=== PATIENT | female | born 1955 | race Caucasian/White ===

== ENCOUNTER 2018-10-13 15:53 | Emergency (ER) | payer BC ==
--- NOTE | 2018-10-13 17:08 | ED ---
General Adult HPI - General Chief complaint: Shortness of Breath Stated complaint: panic attack Time Seen by Provider: 10/13/18 16:07 Source: patient, RN notes reviewed, old records reviewed Mode of arrival: ambulatory Limitations: no limitations - History of Present Illness Initial comments: 63-year-old female presenting with panic attack and dyspnea. Patient has known history of anxiety and has had previous panic attacks. She's been dealing with some increased anxiety over the past several days regarding making Thanksgiving dinner. She states that today she felt lightheaded after getting up in the morning, she did not feel as though she was able to make a meal today and she became quite anxious. She states her [id number] did help her through this panic attack. She does report dyspnea on increase work of breathing. Denies chest pain at the time my evaluation. She's had some intermittent chest pain over the past several years. She has been seen by resident manager, had outpatient stress testing. She has no known history of coronary artery disease. No history of DVT or PE. She is presenting today because she feels this may be related to her heart in addition to anxiety. - Related Data Home Medications Medication Instructions Recorded Confirmed Acetaminophen/Diphenhydramine 1 tab PO HS PRN 10/13/18 10/13/18 [Tylenol PM Extra Strength] Previous Rx's Medication Instructions Recorded ALPRAZolam [Xanax] 0.5 mg PO TID PRN #9 tablet 10/13/18 Allergies Allergy/AdvReac Type Severity Reaction Status Date / Time No Known Allergies Allergy Verified 10/13/18 16:59 Review of Systems ROS Statement: Those systems with pertinent positive or pertinent negative responses have been documented in the HPI. ROS Other: All systems not noted in ROS Statement are negative. Past Medical History Past Medical History: No Reported History History of Any Multi-Drug Resistant Organisms: None Reported Past Surgical History: No Surgical Hx Reported Past Psychological History: Anxiety, Panic Disorder Smoking Status: Current every day smoker Past Alcohol Use History: None Reported Past Drug Use History: Marijuana General Exam Limitations: no limitations General appearance: alert, in no apparent distress, anxious Head exam: Present: atraumatic, normocephalic Eye exam: Present: normal appearance, PERRL ENT exam: Present: normal exam Neck exam: Present: normal inspection. Absent: tenderness, meningismus Respiratory exam: Present: normal lung sounds bilaterally. Absent: respiratory distress, wheezes, rales Cardiovascular Exam: Present: regular rate, normal rhythm GI/Abdominal exam: Present: soft. Absent: distended, tenderness, guarding Extremities exam: Present: normal inspection, full ROM Neurological exam: Present: alert, oriented X3, CN II-XII intact. Absent: motor sensory deficit Psychiatric exam: Present: normal affect, anxious Skin exam: Present: warm, dry, intact. Absent: cyanosis, diaphoretic Course Vital Signs 10/13/18 10/13/18 15:56 17:27 Temperature 97.5 F L Pulse Rate 93 91 Respiratory 24 18 Rate Blood Pressure 133/82 155/92 O2 Sat by Pulse 100 97 Oximetry EKG Findings - EKG Comments: EKG Findings:: EKG: Normal sinus rhythm, conduction delay with ROS R prime, LVH , rate of 88, ME interval 150, QRS duration 90, QTC 464, no ST segment elevation or depression, T waves are upright. Medical Decision Making - Medical Decision Making 62-year-old female presenting with anxiety, panic attack, and dyspnea. Workup in the emergency department reveals mild leukocytosis 12.4, hemoglobin 14.1 which is normal, normal CMP, negative troponin, negative BNP, negative d-dimer. Chest x-ray negative for focal pneumonia or pneumothorax. Patient is reassured. History is consistent with anxiety. She will be prescribed short course of Xanax. She will follow-up with her primary care physician and her resident manager. - Lab Data Result diagrams: 10/13/18 17:27 10/13/18 17:27 Lab Results 10/13/18 10/13/18 10/13/18 Range/Units 17:27 17:27 17:27 WBC 12.4 H (3.8-10.6) k/uL RBC 4.99 (3.80-5.40) m/uL Hgb 14.1 (11.4-16.0) gm/dL Hct 44.2 (34.0-46.0) % MCV 88.6 (80.0-100.0) fL MCH 28.2 (25.0-35.0) pg MCHC 31.9 (31.0-37.0) g/dL RDW 15.4 (11.5-15.5) % Plt Count 330 (150-450) k/uL Neutrophils % 71 % Lymphocytes % 20 % Monocytes % 6 % Eosinophils % 1 % Basophils % 0 % Neutrophils # 8.8 H (1.3-7.7) k/uL Lymphocytes # 2.5 (1.0-4.8) k/uL Monocytes # 0.7 (0-1.0) k/uL Eosinophils # 0.1 (0-0.7) k/uL Basophils # 0.1 (0-0.2) k/uL PT (9.0-12.0) sec INR (<1.2) APTT (22.0-30.0) sec D-Dimer (<0.60) mg/L FEU Sodium 138 (137-145) mmol/L Potassium 3.8 (3.5-5.1) mmol/L Chloride 103 (98-107) mmol/L Carbon Dioxide 22 (22-30) mmol/L Anion Gap 13 mmol/L BUN 19 H (7-17) mg/dL Creatinine 0.78 (0.52-1.04) mg/dL Est GFR (CKD-EPI)AfAm >90 (>60 ml/min/1.73 sqM) Est GFR (CKD-EPI)NonAf 83 (>60 ml/min/1.73 sqM) Glucose 124 H (74-99) mg/dL Calcium 9.9 (8.4-10.2) mg/dL Magnesium 1.7 (1.6-2.3) mg/dL Total Bilirubin 0.5 (0.2-1.3) mg/dL AST 32 (14-36) U/L ALT 20 (9-52) U/L Alkaline Phosphatase 101 (38-126) U/L Total Creatine Kinase 81 (30-135) U/L CK-MB (CK-2) 1.3 (0.0-2.4) ng/mL CK-MB (CK-2) Rel Index 1.6 Troponin I <0.012 (0.000-0.034) ng/mL NT-Pro-B Natriuret Pep pg/mL Total Protein 7.8 (6.3-8.2) g/dL Albumin 4.6 (3.5-5.0) g/dL 10/13/18 10/13/18 10/13/18 Range/Units 17:27 17:27 17:27 WBC (3.8-10.6) k/uL RBC (3.80-5.40) m/uL Hgb (11.4-16.0) gm/dL Hct (34.0-46.0) % MCV (80.0-100.0) fL MCH (25.0-35.0) pg MCHC (31.0-37.0) g/dL RDW (11.5-15.5) % Plt Count (150-450) k/uL Neutrophils % % Lymphocytes % % Monocytes % % Eosinophils % % Basophils % % Neutrophils # (1.3-7.7) k/uL Lymphocytes # (1.0-4.8) k/uL Monocytes # (0-1.0) k/uL Eosinophils # (0-0.7) k/uL Basophils # (0-0.2) k/uL PT 10.3 (9.0-12.0) sec INR 1.0 (<1.2) APTT 25.2 (22.0-30.0) sec D-Dimer 0.36 (<0.60) mg/L FEU Sodium (137-145) mmol/L Potassium (3.5-5.1) mmol/L Chloride (98-107) mmol/L Carbon Dioxide (22-30) mmol/L Anion Gap mmol/L BUN (7-17) mg/dL Creatinine (0.52-1.04) mg/dL Est GFR (CKD-EPI)AfAm (>60 ml/min/1.73 sqM) Est GFR (CKD-EPI)NonAf (>60 ml/min/1.73 sqM) Glucose (74-99) mg/dL Calcium (8.4-10.2) mg/dL Magnesium (1.6-2.3) mg/dL Total Bilirubin (0.2-1.3) mg/dL AST (14-36) U/L ALT (9-52) U/L Alkaline Phosphatase (38-126) U/L Total Creatine Kinase (30-135) U/L CK-MB (CK-2) (0.0-2.4) ng/mL CK-MB (CK-2) Rel Index Troponin I (0.000-0.034) ng/mL NT-Pro-B Natriuret Pep 120 pg/mL Total Protein (6.3-8.2) g/dL Albumin (3.5-5.0) g/dL Disposition Clinical Impression: Anxiety Disposition: HOME SELF-CARE Condition: Good Instructions: Anxiety (ED) Prescriptions: ALPRAZolam [Xanax] 0.5 mg PO TID PRN #9 tablet PRN Reason: Anxiety Is patient prescribed a controlled substance at d/c from ED?: No Referrals: Maral Ennis MD [Primary Care Provider] - 1-2 days Wil Oliva MD [STAFF PHYSICIAN] - 1-2 days Time of Disposition: 19:38
[2018-10-13 17:30] VITALS: RESP 18
[2018-10-13 17:38] LABS: Basophils # (A) 0.1 k/uL (0-0.2); Basophils % (A) 0 %; Eosinophils # (A) 0.1 k/uL (0-0.7); Eosinophils % (A) 1 %; HCT 44.2 % (34.0-46.0); HGB 14.1 gm/dL (11.4-16.0); Lymphocytes # (A) 2.5 k/uL (1.0-4.8); Lymphocytes % (A) 20 %; MCH 28.2 pg (25.0-35.0); MCHC 31.9 g/dL (31.0-37.0); MCV 88.6 fL (80.0-100.0); Mean Platelet Volume 6.6; Monocytes # (A) 0.7 k/uL (0-1.0); Monocytes % (A) 6 %; Neutrophils # (A) 8.8 k/uL (1.3-7.7); Neutrophils % (A) 71 %; Platelet Count 330 k/uL (150-450); RBC 4.99 m/uL (3.80-5.40); RDW 15.4 % (11.5-15.5); WBC 12.4 k/uL (3.8-10.6)
--- NOTE | 2018-10-13 17:42 | XR ---
EXAMINATION TYPE: XR chest 2V DATE OF EXAM: 10/13/2018 COMPARISON: NONE HISTORY: Difficulty in breathing. TECHNIQUE: Frontal and lateral views of the chest are obtained. FINDINGS: Overlying EKG leads are seen. There is some chronic parenchymal change without suspicious f ocal air space opacity, pleural effusion, or pneumothorax seen. The cardiac silhouette size is withi n normal limits with slightly ectatic thoracic aorta causing mass effect on trachea. The osseous st ructures are demineralized. Clips are noted. IMPRESSION: Chronic changes without acute pulmonary process.
[2018-10-13 17:46] LABS: Partial Thromboplastin Time 25.2 sec (22.0-30.0); Prothrombin Time 10.3 sec (9.0-12.0)
[2018-10-13 17:47] LABS: ALT 20 U/L (9-52); AST 32 U/L (14-36); Albumin 4.6 g/dL (3.5-5.0); Alkaline Phosphatase 101 U/L (38-126); Anion Gap 13 mmol/L; Blood Urea Nitrogen 19 mg/dL (7-17); Calcium 9.9 mg/dL (8.4-10.2); Carbon Dioxide 22 mmol/L (22-30); Chloride 103 mmol/L (98-107); Glucose 124 mg/dL (74-99); Magnesium 1.7 mg/dL (1.6-2.3); Potassium 3.8 mmol/L (3.5-5.1); Sodium 138 mmol/L (137-145); Total Bilirubin 0.5 mg/dL (0.2-1.3); Total Protein 7.8 g/dL (6.3-8.2)
[2018-10-13 17:51] LABS: Creatine Kinase 81 U/L (30-135)
[2018-10-13 18:03] LABS: Creatine Kinase MB 1.3 ng/mL (0.0-2.4); Troponin I <0.012 ng/mL (0.000-0.034)
[2018-10-13 19:58] VITALS: BP 122/74; PULSE 72; TEMP 99.2
== END 2018-10-13 19:57 | disposition home or self-care (01) ==
LOC: EC 15:53
DX: F41.9 Anxiety disorder, unspecified (principal); D72.829 Elevated white blood cell count, unspecified; F17.200 Nicotine dependence, unspecified, uncomplicated
CPT/HCPCS: 36415; 71046; 80053; 82550; 82553; 83735; 83880; 84484; 85025; 85379; 85610; 85730; 93005; 99285

== ENCOUNTER → 2019-12-26 | Outpatient (CLI) | payer BC ==
--- NOTE | 2019-12-26 14:11 | CT ---
EXAMINATION TYPE: CT brain wo con DATE OF EXAM: 12/26/2019 COMPARISON: None HISTORY: Fell 11 days ago still has bump on back of head CT DLP: 1012.[address] of the brain was performed. The ventricles, basal cisterns and sulci overlying the cerebral convexities demonstrate mild enlargem ent. There is no evidence for intracranial hemorrhage or sulcal effacement. There is decreased attenuation about the periventricular white matter and deep white matter of both c erebral hemispheres, compatible with chronic small vessel ischemia. Differential diagnosis does inclu de demyelination. No mass effects are seen.No midline shift. Osseous calvarium is intact. If symptoms persist consider MRI. IMPRESSION: 1. Age related atrophic and chronic small vessel ischemic change without acute intracranial process s een at this time.
== END | disposition home or self-care (01) ==
LOC: RADCTMAIN 13:39
PROVIDERS: ATTEND Family Medicine
DX: G31.1 Senile degeneration of brain, not elsewhere classified (principal)
CPT/HCPCS: 70450

== ENCOUNTER 2023-06-14 11:19 | Observation (INO) | payer MEDICARE ==
[2023-06-14] MEDS ORDERED: LORazepam 2 MG/ML INJ IV STA (11:33)
[2023-06-14] MEDS ORDERED: ONDANSETRON 4 MG/2 ML VIAL IVP STA (11:33)
[2023-06-14] MEDS ORDERED: FAMOTIDINE 20 MG/2 ML VIAL IV STA (11:33)
[2023-06-14] MEDS ORDERED: ASPIRIN 81 MG PO STA (11:33)
--- NOTE | 2023-06-14 11:36 | ED ---
General Adult HPI - General Chief complaint: Chest Pain Stated complaint: chest pain Time Seen by Provider: 06/14/23 11:26 Source: patient, family, RN notes reviewed Mode of arrival: ambulatory Limitations: no limitations - History of Present Illness Initial comments: Patient is a pleasant [age]-year-old female presenting to the emergency department with concerns with chest discomfort. Onset of symptoms was past day or so. Patient has had nausea vomiting for the past 3 days. Patient still has nausea. No constipation or diarrhea. No abdominal pain. Patient did feel sweaty yesterday. Patient does have some associated shortness of breath however this is chronic and unchanged. Chest discomfort is hard to describe and rated 4/10. Patient admits to feeling anxious. Patient states she did have a little bit of a headache couple days ago. - Related Data Home Medications Medication Instructions Recorded Confirmed ALPRAZolam [Xanax] 0.5 mg PO DAILY PRN 01/20/23 06/14/23 Metoprolol Tartrate 25 mg PO BID 01/20/23 06/14/23 Rosuvastatin Calcium [Crestor] 40 mg PO W/SUPPER 01/20/23 06/14/23 Aspirin EC [Ecotrin Low Dose] 81 mg PO W/SUPPER 06/14/23 06/14/23 Venlafaxine HCl [Effexor XR] 75 mg PO W/SUPPER 06/14/23 06/14/23 Allergies Allergy/AdvReac Type Severity Reaction Status Date / Time lorazepam [From Ativan] Allergy Hallucinati Verified 06/14/23 13:26 ons heart med Allergy Unknown itchy Uncoded 06/14/23 13:14 Review of Systems ROS Statement: Those systems with pertinent positive or pertinent negative responses have been documented in the HPI. ROS Other: All systems not noted in ROS Statement are negative. Constitutional: Denies: fever Eyes: Denies: eye pain ENT: Denies: ear pain Respiratory: Reports: as per HPI. Denies: cough Cardiovascular: Reports: as per HPI, chest pain Gastrointestinal: Reports: as per HPI, nausea, vomiting. Denies: abdominal pain Musculoskeletal: Denies: back pain Psychiatric: Reports: anxiety Past Medical History Past Medical History: Hypertension, Sleep Apnea/CPAP/BIPAP Additional Past Medical History / Comment(s): hx fast heart rate, c-pap, states blood in stool a month ago, hx of fall oct 2022- states passed out from dehydration- possible cracked vertebrae-wears brace., occasional dizziness. History of Any Multi-Drug Resistant Organisms: None Reported Past Surgical History: Bladder Surgery, Cholecystectomy Additional Past Surgical History / Comment(s): bladder suspension and 2nd surgery for repair , colonoscopy Past Anesthesia/Blood Transfusion Reactions: No Reported Reaction Past Psychological History: Anxiety, Depression Smoking Status: Former smoker Past Alcohol Use History: None Reported Past Drug Use History: Marijuana - Past Family History Mother Family Medical History: No Reported History General Exam Limitations: no limitations General appearance: alert, anxious Head exam: Present: normocephalic Eye exam: Present: normal appearance Neck exam: Present: normal inspection Respiratory exam: Present: normal lung sounds bilaterally Cardiovascular Exam: Present: normal rhythm, tachycardia Expanded Peripheral pulses: 2+: Radial (R), Radial (L), Dorsalis Pedis (R), Dorsalis Pe dis (L) GI/Abdominal exam: Present: soft. Absent: tenderness Extremities exam: Present: normal inspection, calf tenderness (Mild left calf tenderness). Absent: pedal edema Neurological exam: Present: alert. Absent: motor sensory deficit Psychiatric exam: Present: anxious Skin exam: Present: normal color Course Vital Signs 06/14/23 06/14/23 06/14/23 11:21 11:28 12:13 Temperature 97.8 F Pulse Rate 108 H 95 82 Respiratory 18 24 18 Rate Blood Pressure 93/67 126/98 119/83 O2 Sat by Pulse 95 99 97 Oximetry EKG Findings - EKG Results: EKG: interpreted by ERMD (Septal Q waves), sinus rhythm, normal axis, normal ST/T Medical Decision Making - Medical Decision Making Was pt. sent in by a medical professional or institution (, PA, ORNAMENTAL BRICK INSTALLER, urgent care, hospital, or care home...) When possible be specific @ -No Did you speak to anyone other than the patient for history (EMS, parent, family, police, friend...)? What history was obtained from this source @ - is present and helps provide history including blood pressure numbers. Did you review nursing and triage notes (agree or disagree)? Why? @ -I reviewed and agree with nursing and triage notes Were old charts reviewed (outside hosp., previous admission, EMS record, old EKG, old radiological studies, urgent care reports/EKG's, care home records)? Report findings @ -No old charts were reviewed Differential Diagnosis (chest pain, altered mental status, abdominal pain women, abdominal pain men, vaginal bleeding, weakness, fever, dyspnea, syncope, headache, dizziness, GI bleed, back pain, seizure, CVA, palpatations, mental health, musculoskeletal)? @ -Differential Chest Pain: Stable Angina, Unstable Angina, STEMI, NSTEMI Aortic Dissection, Pneumothorax, Musculoskeletal, Esophageal Spasm GERD, Cholecystitis, Pancreatitis, Zoster, this is not meant to be an all-inclusive list. EKG interpreted by me (3pts min.). @ -As above X-rays interpreted by me (1pt min.). @ -None done CT interpreted by me (1pt min.). @ -Reported as no pulmonary embolism U/S interpreted by me (1pt. min.). @ -Reported as negative for clot What testing was considered but not performed or refused? (CT, X-rays, U/S, labs)? Why? @ -Consider chest x-ray however computed tomography scan was done first What meds were considered but not given or refused? Why? @ -None Did you discuss the management of the patient with other professionals (professionals i.e. , PA, ORNAMENTAL BRICK INSTALLER, lab, RT, psych nurse, healthcare social worker, software test and validation engineer, teacher, interface control officer, director case management)? Give summary @ -Case was discussed with Dr. king, who will admit covering Dr. Gomes Was smoking cessation discussed for >3mins.? @ -No Was critical care preformed (if so, how long)? @ -No Were there social determinants of health that impacted care today? How? (Homelessness, low income, unemployed, alcoholism, drug addiction, transportation, low edu. Level, literacy, decrease access to med. care, group home, rehab)? @ -No Was there de-escalation of care discussed even if they declined (Discuss DNR or withdrawal of care, Hospice)? DNR status @ -No What co-morbidities impacted this encounter? (DM, HTN, Smoking, COPD, CAD, Cancer, CVA, ARF, Chemo, Hep., AIDS, mental health diagnosis, sleep apnea, morbid obesity)? @ -None Was patient admitted / discharged? Hospital course, mention meds given and route, prescriptions, significant lab abnormalities, going to OR and other pertinent info. @ -Patient reevaluated and feeling much better. Patient did hallucinate that she has visualized dogs and the ceiling, likely from Ativan. Patient and family updated on results and plan. Patient will be held for cardiac evaluation and urologist as well as hydration Undiagnosed new problem with uncertain prognosis? @ -No Drug Therapy requiring intensive monitoring for toxicity (Heparin, Nitro, Insulin, Cardizem)? @ -No Were any procedures done? @ -No Diagnosis/symptom? @ -Chest pain, dehydration Acute, or Chronic, or Acute on Chronic? @ -Acute, acute Uncomplicated (without systemic symptoms) or Complicated (systemic symptoms)? @ -default Side effects of treatment? @ -No Exacerbation, Progression, or Severe Exacerbation? @ -No Poses a threat to life or bodily function? How? (Chest pain, [place], [place], pneumonia, PE, COPD, DKA, ARF, appy, cholecystitis, CVA, Diverticulitis, Homicidal, Suicidal, threat to staff... and all critical care pts) @ -No - Lab Data Result diagrams: 06/14/23 11:35 06/14/23 11:35 Lab Results 06/14/23 06/14/23 06/14/23 Range/Units 11:35 11:35 11:35 WBC 17.6 H (3.8-10.6) k/uL RBC 5.34 (3.80-5.40) m/uL Hgb 15.3 (11.4-16.0) gm/dL Hct 44.7 (34.0-46.0) % MCV 83.8 (80.0-100.0) fL MCH 28.8 (25.0-35.0) pg MCHC 34.3 (31.0-37.0) g/dL RDW 16.0 H (11.5-15.5) % Plt Count 414 (150-450) k/uL MPV 7.6 Neutrophils % 77 % Lymphocytes % 16 % Monocytes % 5 % Eosinophils % 1 % Basophils % 0 % Neutrophils # 13.5 H (1.3-7.7) k/uL Lymphocytes # 2.8 (1.0-4.8) k/uL Monocytes # 0.9 (0-1.0) k/uL Eosinophils # 0.2 (0-0.7) k/uL Basophils # 0.0 (0-0.2) k/uL Anisocytosis Slight PT 10.9 (9.0-12.0) sec INR 1.0 (<1.2) APTT 25.0 (22.0-30.0) sec D-Dimer 0.67 H (<0.60) mg/L FEU Sodium 129 L (137-145) mmol/L Potassium 4.0 (3.5-5.1) mmol/L Chloride 93 L (98-107) mmol/L Carbon Dioxide 20 L (22-30) mmol/L Anion Gap 16 mmol/L BUN 37 H (7-17) mg/dL Creatinine 1.15 H (0.52-1.04) mg/dL Est GFR (CKD-EPI)AfAm 58 (>60 ml/min/1.73 sqM) Est GFR (CKD-EPI)NonAf 50 (>60 ml/min/1.73 sqM) Glucose 139 H (74-99) mg/dL Calcium 9.7 (8.4-10.2) mg/dL Magnesium 2.0 (1.6-2.3) mg/dL Total Bilirubin 0.6 (0.2-1.3) mg/dL AST 32 (14-36) U/L ALT 23 (4-34) U/L Alkaline Phosphatase 121 (38-126) U/L Troponin I (0.000-0.034) ng/mL NT-Pro-B Natriuret Pep 2330 pg/mL Total Protein 8.4 H (6.3-8.2) g/dL Albumin 4.7 (3.5-5.0) g/dL Amylase 48 (30-110) U/L Lipase 80 (23-300) U/L 06/14/23 Range/Units 11:35 WBC (3.8-10.6) k/uL RBC (3.80-5.40) m/uL Hgb (11.4-16.0) gm/dL Hct (34.0-46.0) % MCV (80.0-100.0) fL MCH (25.0-35.0) pg MCHC (31.0-37.0) g/dL RDW (11.5-15.5) % Plt Count (150-450) k/uL MPV Neutrophils % % Lymphocytes % % Monocytes % % Eosinophils % % Basophils % % Neutrophils # (1.3-7.7) k/uL Lymphocytes # (1.0-4.8) k/uL Monocytes # (0-1.0) k/uL Eosinophils # (0-0.7) k/uL Basophils # (0-0.2) k/uL Anisocytosis PT (9.0-12.0) sec INR (<1.2) APTT (22.0-30.0) sec D-Dimer (<0.60) mg/L FEU Sodium (137-145) mmol/L Potassium (3.5-5.1) mmol/L Chloride (98-107) mmol/L Carbon Dioxide (22-30) mmol/L Anion Gap mmol/L BUN (7-17) mg/dL Creatinine (0.52-1.04) mg/dL Est GFR (CKD-EPI)AfAm (>60 ml/min/1.73 sqM) Est GFR (CKD-EPI)NonAf (>60 ml/min/1.73 sqM) Glucose (74-99) mg/dL Calcium (8.4-10.2) mg/dL Magnesium (1.6-2.3) mg/dL Total Bilirubin (0.2-1.3) mg/dL AST (14-36) U/L ALT (4-34) U/L Alkaline Phosphatase (38-126) U/L Troponin I 0.035 H* (0.000-0.034) ng/mL NT-Pro-B Natriuret Pep pg/mL Total Protein (6.3-8.2) g/dL Albumin (3.5-5.0) g/dL Amylase (30-110) U/L Lipase (23-300) U/L Disposition Clinical Impression: Chest pain Disposition: ADMITTED IP TO THIS [facility] Is patient prescribed a controlled substance at d/c from ED?: No Referrals: Mickie Miramontes MD [Primary Care Provider] - 1-2 days Time of Disposition: 13:56
[2023-06-14 11:44] LABS: Anisocytosis Slight; Basophils % (A) 0 %; Eosinophils # (A) 0.2 k/uL (0-0.7); Eosinophils % (A) 1 %; HCT 44.7 % (34.0-46.0); HGB 15.3 gm/dL (11.4-16.0); Lymphocytes # (A) 2.8 k/uL (1.0-4.8); Lymphocytes % (A) 16 %; MCH 28.8 pg (25.0-35.0); MCHC 34.3 g/dL (31.0-37.0); MCV 83.8 fL (80.0-100.0); Mean Platelet Volume 7.6; Monocytes # (A) 0.9 k/uL (0-1.0); Monocytes % (A) 5 %; Neutrophils # (A) 13.5 k/uL (1.3-7.7); Neutrophils % (A) 77 %; Platelet Count 414 k/uL (150-450); RBC 5.34 m/uL (3.80-5.40); WBC 17.6 k/uL (3.8-10.6)
[2023-06-14 11:57] LABS: ALT 23 U/L (4-34); AST 32 U/L (14-36); African American GFR (CKD) 58 (>60 ml/min/1.73 sqM); Albumin 4.7 g/dL (3.5-5.0); Alkaline Phosphatase 121 U/L (38-126); Amylase 48 U/L (30-110); Anion Gap 16 mmol/L; Blood Urea Nitrogen 37 mg/dL (7-17); Calcium 9.7 mg/dL (8.4-10.2); Carbon Dioxide 20 mmol/L (22-30); Chloride 93 mmol/L (98-107); Glucose 139 mg/dL (74-99); Lipase 80 U/L (23-300); Non-African American GFR(CKD) 50 (>60 ml/min/1.73 sqM); Sodium 129 mmol/L (137-145); Total Bilirubin 0.6 mg/dL (0.2-1.3); Total Protein 8.4 g/dL (6.3-8.2)
[2023-06-14 12:00] LABS: Prothrombin Time 10.9 sec (9.0-12.0)
[2023-06-14 12:05] LABS: NT-Pro-B-Type Natriuretic Pept 2330 pg/mL
--- NOTE | 2023-06-14 12:31 | US ---
EXAMINATION TYPE: US venous doppler duplex LE LT DATE OF EXAM: 06/14/2023 12:25 PM COMPARISON: NONE CLINICAL INDICATION: Female, 67 years old with history of calf pain; SIDE PERFORMED: Left TECHNIQUE: The lower extremity deep venous system is examined utilizing real time linear array sonog bradly with graded compression, doppler sonography and color-flow sonography. VESSELS IMAGED: Common Femoral Vein Deep Femoral Vein Greater Saphenous Vein * Femoral Vein Popliteal Vein Small Saphenous Vein * Proximal Calf Veins (* superficial vessels) Left Leg: Negative for DVT IMPRESSION: No evidence for dvt
--- NOTE | 2023-06-14 13:01 | CT ---
EXAMINATION TYPE: CT angio chest CT DLP: 420.3 mGycm, Automated exposure control for dose reduction was used. DATE OF EXAM: 06/14/2023 12:52 PM COMPARISON: Chest radiograph from same day. CLINICAL INDICATION:Female, 67 years old with history of cp; Chest pain TECHNIQUE/CONTRAST: CTA scan of the thorax is performed without and with IV Contrast, patient injected with 100 ml mL of Isovue 370, MIP images are created and reviewed these are created on a separate workstation.. FINDINGS: Pulmonary Artery: There is no evidence for a filling defect within the pulmonary vasculature to sugge st acute pulmonary embolism. The pulmonary artery is of normal size. Lungs/Pleura: No evidence of focal consolidation, pleural effusion or pneumothorax. Airway: Large airways are patent. Heart: Heart is within normal limits for size. Vasculature: No evidence of aortic aneurysm. Mediastinum: No gross evidence of adenopathy. Musculoskeletal: No acute osseous abnormalities Soft Tissues: Unremarkable. Lower neck: No significant findings. Upper Abdomen: No significant findings. IMPRESSION: No evidence of pulmonary embolism.
[2023-06-14] MEDS ORDERED: ALPRAZolam 0.5 MG TAB PO PRN (13:57)
[2023-06-14] MEDS ORDERED: NITROGLYCERIN SL TABS 0.4 MG TAB SUBLINGUAL PRN (13:57)
[2023-06-14] MEDS ORDERED: ONDANSETRON 4 MG/2 ML VIAL IVP PRN (13:59)
[2023-06-14] MEDS: SODIUM CHLORIDE 0.9% 1,000 ML IV SCH (14:22)
[2023-06-14] MEDS ORDERED: ACET/COD 120MG/12MG LIQ 5ML CUP PO PRN (14:37)
[2023-06-14] MEDS ORDERED: HYDROcodone/APAP 5-325MG 1 EACH TAB PO STA (14:38)
--- NOTE | 2023-06-14 14:42 | P.HPIM ---
History of Present Illness This is a pleasant 67 years old female with past medical history of hypertension, sleep apnea Patient presents because of chest pain Of one-day duration on the left side nonradiating. It like an achy pain increased by cough and deep breathing rated about fifth-60/10 in severity. Associated with little dyspnea. Patient recently went into a Tuesday through Tuesday where she started having vomiting and diarrhea, she's been having these symptoms for the last 4 days. Also patient has been feeling dizzy and sweating and feeling hot but she did not check her temperature. Her check her blood pressure at home and was 159 systolic while she was crying. At home she takes metoprolol 25, twice daily and she stopped taking it for the last 4 days because she's been throwing up however today her give her a dose because he noticed blood pressure is slightly elevated well-appearing as above. Patient also fell at home recently but without syncope. She has history of syncope but this is about 7 months ago. She denies any urinary symptoms. No headache. No weakness. She has chronic tingling in her tip of her fingers and feet for the last 2 years She says that her diarrhea about 3 times per day there was some streaks of blood when she wiped, she had colonoscopy about 2-3 months ago which was unremarkable, it was done with Dr. Oliva. She denies use of alcohol or illicit tracts at bedside. Questions answered On admission patient blood pressure was on the low side 93/67, currently blood pressure 119/83. rest of vitals are stable Patient has leukocytosis of 17.6 Also d-dimer slightly elevated at 0.67. Sodium 129. Creatinine 1.1. Liver enzymes not elevated. Troponin elevated at 0.03 EKG showing ectopic atrial rhythm at a rate of 96, no significant ST-T changes. Venous Doppler is negative for DVT in left legs Emergency room patient was started on normal saline at 100 mL per hour also she was given aspirin CTA of the chest: No evidence of pulmonary embolism, no consolidation in the report of radiologist Review of Systems Review of systems CONSTITUTIONAL: No fever, no malaise, no fatigue. HEENT: No recent visual problems or hearing problems. Denied any sore throat. CARDIOVASCULAR: No orthopnea, PND, no palpitations, no syncope. PULMONARY: No shortness of breath, no cough, no hemoptysis. GASTROINTESTINAL: No diarrhea, no nausea, no vomiting, no abdominal pain. Normoactive bowel sounds. NEUROLOGICAL: No headaches, no weakness, no numbness. HEMATOLOGICAL: Denies any bleeding or petechiae. GENITOURINARY: Denies any burning micturition, frequency, or urgency. MUSCULOSKELETAL/RHEUMATOLOGICAL: Denies any joint pain, swelling, or any muscle pain. ENDOCRINE: Denies any polyuria or polydipsia. Past Medical History Past Medical History: Hypertension, Sleep Apnea/CPAP/BIPAP Additional Past Medical History / Comment(s): hx fast heart rate, c-pap, states blood in stool a month ago, hx of fall oct 2022- states passed out from dehydration- possible cracked vertebrae-wears brace., occasional dizziness. History of Any Multi-Drug Resistant Organisms: None Reported Past Surgical History: Bladder Surgery, Cholecystectomy Additional Past Surgical History / Comment(s): bladder suspension and 2nd surgery for repair , colonoscopy Past Anesthesia/Blood Transfusion Reactions: No Reported Reaction Past Psychological History: Anxiety, Depression Smoking Status: Former smoker Past Alcohol Use History: None Reported Past Drug Use History: Marijuana - Past Family History Mother Family Medical History: No Reported History Medications and Allergies Home Medications Medication Instructions Recorded Confirmed Type ALPRAZolam [Xanax] 0.5 mg PO DAILY PRN 01/20/23 06/14/23 History Metoprolol Tartrate 25 mg PO BID 01/20/23 06/14/23 History Rosuvastatin Calcium [Crestor] 40 mg PO W/SUPPER 01/20/23 06/14/23 History Aspirin EC [Ecotrin Low Dose] 81 mg PO W/SUPPER 06/14/23 06/14/23 History Venlafaxine HCl [Effexor XR] 75 mg PO W/SUPPER 06/14/23 06/14/23 History Allergies Allergy/AdvReac Type Severity Reaction Status Date / Time lorazepam [From Ativan] Allergy Hallucinati Verified 06/14/23 13:26 ons heart med Allergy Unknown itchy Uncoded 06/14/23 13:14 Physical Exam Vitals: Vital Signs Temp Pulse Resp BP Pulse Ox 06/14/23 12:13 82 18 119/83 97 06/14/23 11:28 95 24 126/98 99 06/14/23 11:21 97.8 F 108 H 18 93/67 95 Intake and Output 06/13/23 06/14/23 06/14/23 22:59 06:59 14:59 Other: Weight 106.594 kg GENERAL: The patient is alert and oriented x3, not in any acute distress. Well developed, well nourished. HEENT: Pupils are round and equally reacting to light. EOMI. No scleral icterus. No conjunctival pallor. Normocephalic, atraumatic. No pharyngeal erythema. No thyromegaly. CARDIOVASCULAR: S1 and S2 present. No murmurs, rubs, or gallops. PULMONARY: Chest is clear to auscultation, no wheezing , no crackles. ABDOMEN: Soft, nontender, nondistended, normoactive bowel sounds. No palpable organomegaly. MUSCULOSKELETAL: No joint swelling or deformity. EXTREMITIES: No cyanosis, clubbing, or pedal edema. NEUROLOGICAL: Gross neurological examination did not reveal any focal deficits. SKIN: No rashes. no petechiae. Results CBC & Chem 7: 06/14/23 11:35 06/14/23 11:35 Labs: Abnormal Lab Results - Last 24 Hours (Table) 06/14/23 06/14/23 06/14/23 Range/Units 11:35 11:35 11:35 WBC 17.6 H (3.8-10.6) k/uL RDW 16.0 H (11.5-15.5) % Neutrophils # 13.5 H (1.3-7.7) k/uL D-Dimer 0.67 H (<0.60) mg/L FEU Sodium 129 L (137-145) mmol/L Chloride 93 L (98-107) mmol/L Carbon Dioxide 20 L (22-30) mmol/L BUN 37 H (7-17) mg/dL Creatinine 1.15 H (0.52-1.04) mg/dL Glucose 139 H (74-99) mg/dL Troponin I (0.000-0.034) ng/mL Total Protein 8.4 H (6.3-8.2) g/dL 06/14/23 Range/Units 11:35 WBC (3.8-10.6) k/uL RDW (11.5-15.5) % Neutrophils # (1.3-7.7) k/uL D-Dimer (<0.60) mg/L FEU Sodium (137-145) mmol/L Chloride (98-107) mmol/L Carbon Dioxide (22-30) mmol/L BUN (7-17) mg/dL Creatinine (0.52-1.04) mg/dL Glucose (74-99) mg/dL Troponin I 0.035 H* (0.000-0.034) ng/mL Total Protein (6.3-8.2) g/dL Assessment and Plan Assessment: Chest pain, felt to be pleuritic-like chest pain, could be viral rule out cardiac causes with elevated troponin 0.035 Acute gastroenteritis, infectious causes is suspected including but not limited to viral infectious agents leukocytosis, could be secondary to above Hypovolemic hyponatremia Fall without syncope Borderline and hypertension with hypokalemia secondary to above Obesity with BMI of 37.9 History of hypertension, antihypertensive Hyperlipidemia History of sleep apnea Plan: Continue with IV fluids Check C. diff, also check occult blood in stool Do serial troponin, telemetry monitoring. Continue with aspirin Cardiology consult. check pro-calcitonin Labs and medication were reviewed.. Continue same treatment. Continue with symptomatic treatment. Resume home medication. Monitor labs and vitals. DVT and GI prophylaxis. Further recommendations as per clinical course of the patient DVT prophylaxis: Subcutaneous heparin GI Prophylaxis: Pepcid Prognosis is guarded
[2023-06-14 15:53] VITALS: RESP 16
[2023-06-14] MEDS: VENLAFAXINE HCL ER 75 MG CAP PO SCH (17:44)
[2023-06-14] MEDS: ATORVASTATIN 80 MG TAB PO SCH (17:44)
[2023-06-14] MEDS: ASPIRIN 81 MG PO SCH (17:44)
[2023-06-14] MEDS ORDERED: SODIUM CHLORIDE 0.9% 500 ML 500 ML IV ONE (17:55)
[2023-06-14] MEDS: HEPARIN SODIUM,PORCINE/PF 5,000 UNIT/0.5 ML SYRINGE SQ SCH (19:37)
[2023-06-14] MEDS ORDERED: METOPROLOL TARTRATE 25 MG TAB PO STA (20:07)
[2023-06-14] MEDS ORDERED: METOPROLOL TARTRATE 25 MG TAB PO SCH (21:00)
[2023-06-14] MEDS ORDERED: ATORVASTATIN 40 MG TAB PO SCH (21:00)
[2023-06-14 21:27] VITALS: TEMP 98.4
[2023-06-15] MEDS: SODIUM CHLORIDE 0.9% 1,000 ML IV SCH (04:49)
--- NOTE | 2023-06-15 07:12 | CA ---
Transthoracic Echo Report Name: Julienne Velez Age: 67 Gender: F : 1955 Exam Date: 06/14/2023 14:49 Exam Location: [facility] Ht (in): 66 Wt (lb): 235 Ordering Physician: Jona Da Silva MD Attending/Referring Phys: [id number], Avinash Machine Operator Replanter Chase Casillas Procedure CPT: Indications: Rule out heart disease Cardiac Hx: Technical Quality: Technically difficult study Contrast 1: Lumason Total Dose (mL): 5 Contrast 2: Total Dose (mL): MEASUREMENTS (Male / Female) Normal Values 2D ECHO LV Diastolic Diameter PLAX 4.1 cm 4.2 - 5.9 / 3.9 - 5.3 cm LV Systolic Diameter PLAX 2.8 cm IVS Diastolic Thickness 1.2 cm 0.6 - 1.0 / 0.6 - 0.9 cm LVPW Diastolic Thickness 1.2 cm 0.6 - 1.0 / 0.6 - 0.9 cm LV Relative Wall Thickness 0.6 RV Internal Dim ED PLAX 3.4 cm LVOT Diameter 2.0 cm Aortic Root Diameter 3.2 cm LA Systolic Diameter LX 2.0 cm 3.0 - 4.0 / 2.7 - 3.8 cm LV Diastolic Volume MOD BP 38.5 cm??? 67 - 155 / 56 - 104 cm??? LV Systolic Volume MOD BP 22.7 cm??? 22 - 58 / 19 - 49 cm??? LV Ejection Fraction MOD BP 41.1 % >= 55 % LV Cardiac Index MOD BP 542.7 cm???/min???m??? LV Diastolic Volume MOD 4C 55.1 cm??? LV Systolic Volume MOD 4C 32.4 cm??? LV Ejection Fraction MOD 4C 41.2 % LV Cardiac Index MOD 4C 777.5 cm???/min???m??? LV Diastolic Length 4C 6.8 cm LV Systolic Length 4C 6.4 cm LV Diastolic Volume MOD 2C 23.8 cm??? LV Systolic Volume MOD 2C 13.2 cm??? LV Ejection Fraction MOD 2C 44.3 % LV Cardiac Index MOD 2C 360.4 cm???/min???m??? LV Diastolic Length 2C 6.0 cm LV Systolic Length 2C 5.3 cm LA Volume 41.6 cm??? 18 - 58 / 22 - 52 cm??? Ascending Aorta Diameter 3.0 cm DOPPLER AV Peak Velocity 118.0 cm/s AV Peak Gradient 5.6 mmHg LVOT Peak Velocity 95.7 cm/s LVOT Peak Gradient 3.7 mmHg AV Area Cont Eq pk 2.5 cm??? MR Peak Velocity 137.8 cm/s MR Peak Gradient 7.6 mmHg Mitral E Point Velocity 40.5 cm/s Mitral A Point Velocity 64.8 cm/s Mitral E to A Ratio 0.6 MV Deceleration Time 350.8 ms MV E' Velocity 3.1 cm/s Mitral E to MV E' Ratio 13.2 TR Peak Velocity 155.5 cm/s TR Peak Gradient 9.7 mmHg Right Ventricular Systolic Press 14.7 mmHg PV Peak Velocity 102.5 cm/s PV Peak Gradient 4.2 mmHg FINDINGS Left Ventricle Normal LV size and wall thickness. Left ventricular ejection fraction is estimated at 55-60 %.normal left ventricular wall motion. Normal left ventricular diastolic filling pattern. Right Ventricle Normal right ventricular size. Right Atrium Normal right atrial size. Left Atrium Normal left atrial size. Mitral Valve Structurally normal mitral valve. Trace MR. Aortic Valve Aortic valve not well visualized. No aortic valve stenosis or regurgitation. Tricuspid Valve Tricuspid valve not well visualized. Trace TR. Pulmonic Valve Pulmonic valve not well visualized. Pericardium Normal pericardium. Aorta Normal size aortic root . CONCLUSIONS Technically difficult study. Normal left ventricle size and systolic function Limited Doppler study with trace mitral and tricuspid regurgitation Previewed by: Dr. Matthew Reeves MD (Electronically Signed) Final Date: 15 June 2023 07:10
[2023-06-15 07:16] LABS: Anisocytosis Slight; Basophils # (A) 0.1 k/uL (0-0.2); Basophils % (A) 0 %; Eosinophils # (A) 0.1 k/uL (0-0.7); Eosinophils % (A) 1 %; HCT 40.9 % (34.0-46.0); Lymphocytes # (A) 3.2 k/uL (1.0-4.8); Lymphocytes % (A) 27 %; MCH 28.1 pg (25.0-35.0); MCHC 31.9 g/dL (31.0-37.0); MCV 88.3 fL (80.0-100.0); Mean Platelet Volume 7.8; Monocytes # (A) 0.8 k/uL (0-1.0); Monocytes % (A) 7 %; Neutrophils # (A) 7.3 k/uL (1.3-7.7); Neutrophils % (A) 62 %; Platelet Count 289 k/uL (150-450); RBC 4.64 m/uL (3.80-5.40); RDW 16.1 % (11.5-15.5); WBC 11.8 k/uL (3.8-10.6)
[2023-06-15 07:34] LABS: African American GFR (CKD) 61 (>60 ml/min/1.73 sqM); Anion Gap 10 mmol/L; Blood Urea Nitrogen 33 mg/dL (7-17); Calcium 8.3 mg/dL (8.4-10.2); Carbon Dioxide 21 mmol/L (22-30); Chloride 102 mmol/L (98-107); Glucose 96 mg/dL (74-99); Non-African American GFR(CKD) 53 (>60 ml/min/1.73 sqM); Potassium 3.9 mmol/L (3.5-5.1); Sodium 133 mmol/L (137-145)
[2023-06-15] MEDS: HEPARIN SODIUM,PORCINE/PF 5,000 UNIT/0.5 ML SYRINGE SQ SCH (08:24)
[2023-06-15] MEDS: HYDROcodone/APAP 5-325MG 1 EACH TAB PO PRN ×2 (08:24→17:08)
[2023-06-15] MEDS ORDERED: ASPIRIN 325 MG TAB PO SCH (09:00)
[2023-06-15] MEDS ORDERED: FAMOTIDINE 20 MG TAB PO SCH (09:00)
[2023-06-15] MEDS ORDERED: METOPROLOL TARTRATE 50 MG TAB PO SCH (09:00)
--- NOTE | 2023-06-15 10:49 | P.CRDCN ---
History of Present Illness History of present illness: HISTORY OF PRESENT ILLNESS: This is a 67-year-old female with a past medical history significant for hypertension, hyperlipidemia, and carotid stenosis. Patient follows in the office with Dr. Oliva. We have been asked to see the patient in consultation for chest pain. Patient examined at the bedside. Patient states she has been feeling unwell for the past 3 days. She reports having nausea. She also reports having diarrhea as well. She states she is still having diarrhea this morning. She also reports she has been having episodes of dizziness. She reports having chest pain that is worsened with inspiration. She denies any chest pain at the time of examination. She states that she had a carotid ultrasound performed recently and is due to follow-up with Dr. Pollard regarding this. Vital signs are stable. The patient did have an episode of SVT overni ght. Her metoprolol was increased to 50 mg twice a day. She denied having any dizziness at that time. * EKG reveals sinus mechanism with no signs of acute ischemia * Chest CTA: No evidence of pulmonary embolism * Laboratory data: W BC 11.8. Hemoglobin 13.0. Platelet count 289. Sodium 133. Potassium 3.9. BUN 33. Creatinine 1.10. ProBNP 2330. Troponin 0.035. 0.033. 0.030. * Current home cardiac medications include Crestor 40 mg daily, aspirin 81 mg daily, metoprolol tartrate 25 mg twice a day * Echocardiogram performed revealing ejection fraction 55-60%, trace mitral regurgitation and trace tricuspid regurgitation * Patient underwent Lexiscan stress test in January 2022 which was negative for ischemia REVIEW OF SYSTEMS: At the time of my exam: CONSTITUTIONAL: Denies fever or chills. HEENT: Denies blurred vision, vision changes, or eye pain. Denies hemoptysis CARDIOVASCULAR: Denies chest pain. Denies orthopnea. Denies PND. Denies palpitations RESPIRATORY: Denies shortness of breath. GASTROINTESTINAL: Denies abdominal pain. Denies nausea or vomiting. HEMATOLOGIC: Denies bleeding disorders. GENITOURINARY: Denies any blood in urine. SKIN: Denies pruitis. Denies rash. PHYSICAL EXAM: VITAL SIGNS: Reviewed. GENERAL: Well-developed in no acute distress. HEENT: Head is normocephalic. Pupils are equal, round. Sclerae anicteric. Mucous membranes of the mouth are moist. Neck supple. No JVD or thyromegaly LUNGS: Respirations even and unlabored. Lungs essentially clear to auscultation bilaterally. HEART: Regular rate and rhythm. S1 and S2 heard. ABDOMEN: Soft. Nondistended. Nontender. EXTREMITIES: Normal range of motion. No clubbing or cyanosis. Peripheral pulses intact. No lower extremity edema NEUROLOGIC: Awake and alert. Oriented x 3. ASSESSMENT: Chest pain, atypical, acute coronary syndrome ruled out Paroxysmal SVT Nausea and diarrhea 3 days Bilateral carotid stenosis Hypertension Hyperlipidemia History of dizziness PLAN: An acute coronary event has been ruled out Continue current cardiac medications Continue increased dose of metoprolol 50 mg twice a day Patient to receive 30 day event monitor at the time of discharge Patient to follow up with Dr. Pollard regarding her carotid stenosis Patient to follow-up post discharge with Dr. Oliva Nurse practitioner note has been reviewed by physician. Signing provider agrees with the documented findings, assessment, and plan of care. Past Medical History Past Medical History: Hypertension, Sleep Apnea/CPAP/BIPAP Additional Past Medical History / Comment(s): hx fast heart rate, c-pap, states blood in stool a month ago, hx of fall oct 2022- states passed out from dehydration- possible cracked vertebrae-wears brace., occasional dizziness. History of Any Multi-Drug Resistant Organisms: None Reported Past Surgical History: Bladder Surgery, Cholecystectomy Additional Past Surgical History / Comment(s): bladder suspension and 2nd surgery for repair , colonoscopy Past Anesthesia/Blood Transfusion Reactions: No Reported Reaction Past Psychological History: Anxiety, Depression Smoking Status: Former smoker Past Alcohol Use History: None Reported Past Drug Use History: Marijuana - Past Family History Mother Family Medical History: No Reported History Medications and Allergies Home Medications Medication Instructions Recorded Confirmed Type ALPRAZolam [Xanax] 0.5 mg PO DAILY PRN 01/20/23 06/14/23 History Metoprolol Tartrate 25 mg PO BID 01/20/23 06/14/23 History Rosuvastatin Calcium [Crestor] 40 mg PO W/SUPPER 01/20/23 06/14/23 History Aspirin EC [Ecotrin Low Dose] 81 mg PO W/SUPPER 06/14/23 06/14/23 History Venlafaxine HCl [Effexor XR] 75 mg PO W/SUPPER 06/14/23 06/14/23 History Allergies Allergy/AdvReac Type Severity Reaction Status Date / Time lorazepam [From Ativan] Allergy Hallucinati Verified 06/14/23 13:26 ons heart med Allergy Unknown itchy Uncoded 06/14/23 13:14 Physical Exam Vitals: Vital Signs Temp Pulse Pulse Pulse Pulse Resp BP 06/15/23 08:00 86 16 06/15/23 04:00 70 16 06/15/23 00:00 77 16 06/14/23 21:26 92 06/14/23 20:00 98.4 F 153 H 16 06/14/23 15:50 101 H 117 H 86 16 06/14/23 14:24 98.2 F 85 18 103/74 06/14/23 12:13 82 18 119/83 06/14/23 11:28 95 24 126/98 06/14/23 11:21 97.8 F 108 H 18 93/67 BP BP BP Pulse Ox 06/15/23 08:00 121/71 96 06/15/23 04:00 101/61 96 06/15/23 00:00 96/66 97 06/14/23 21:26 06/14/23 20:00 121/72 97 06/14/23 15:50 105/71 87/61 129/82 100 06/14/23 14:24 98 06/14/23 12:13 97 06/14/23 11:28 99 06/14/23 11:21 95 Intake and Output 06/14/23 06/15/23 06/15/23 22:59 06:59 14:59 Intake Total 780 540 118 Balance 780 540 118 Intake: Intake, IV Titration 540 Amount Sodium Chloride 0.9% 1, 540 000 ml @ 100 mls/hr IV . Q10H [facility] Rx#:[id number] Oral 780 118 Other: Voiding Method Toilet Toilet # Voids 1 1 Results 06/15/23 06:02 06/15/23 06:02 Cardiac Enzymes 06/14/23 06/14/23 06/14/23 Range/Units 11:35 11:35 14:39 AST 32 (14-36) U/L Troponin I 0.035 H* 0.033 (0.000-0.034) ng/mL 06/14/23 Range/Units 17:15 AST (14-36) U/L Troponin I 0.030 (0.000-0.034) ng/mL Coagulation 06/14/23 Range/Units 11:35 PT 10.9 (9.0-12.0) sec APTT 25.0 (22.0-30.0) sec CBC 06/14/23 06/15/23 Range/Units 11:35 06:02 WBC 17.6 H 11.8 H (3.8-10.6) k/uL RBC 5.34 4.64 (3.80-5.40) m/uL Hgb 15.3 13.0 (11.4-16.0) gm/dL Hct 44.7 40.9 (34.0-46.0) % Plt Count 414 289 (150-450) k/uL Comprehensive Metabolic Panel 06/14/23 06/15/23 Range/Units 11:35 06:02 Sodium 129 L 133 L (137-145) mmol/L Potassium 4.0 3.9 (3.5-5.1) mmol/L Chloride 93 L 102 (98-107) mmol/L Carbon Dioxide 20 L 21 L (22-30) mmol/L BUN 37 H 33 H (7-17) mg/dL Creatinine 1.15 H 1.10 H (0.52-1.04) mg/dL Glucose 139 H 96 (74-99) mg/dL Calcium 9.7 8.3 L (8.4-10.2) mg/dL AST 32 (14-36) U/L ALT 23 (4-34) U/L Alkaline Phosphatase 121 (38-126) U/L Total Protein 8.4 H (6.3-8.2) g/dL Albumin 4.7 (3.5-5.0) g/dL Current Medications Generic Name Dose Route Start Last Admin Trade Name Freq PRN Reason Stop Dose Admin Acetaminophen/Codeine Phosphate 5 ml 06/14/23 14:37 Acet/Cod 120mg/12mg Liq 5ml Cup PO Q6HR PRN Pain Hydrocodone Bitart/Acetaminophen 1 each 06/14/23 14:37 06/15/23 08:24 Hydrocodone/Apap 5-325mg 1 Each Tab PO 1 each Q6HR PRN Administration Pain Alprazolam 0.5 mg 06/14/23 13:57 Alprazolam 0.5 Mg Tab PO DAILY PRN Anxiety Aspirin 81 mg 06/14/23 17:30 06/14/23 17:44 Aspirin 81 Mg PO Not Given W/SUPPER TANIA Atorvastatin Calcium 80 mg 06/14/23 17:30 06/14/23 17:44 Atorvastatin 80 Mg Tab PO 80 mg W/SUPPER TANIA Administration Famotidine 20 mg 06/15/23 09:00 06/15/23 08:24 Famotidine 20 Mg Tab PO 20 mg DAILY TANIA Administration Heparin Sodium (Porcine) 5,000 unit 06/14/23 21:00 06/15/23 08:24 Heparin Sodium,Porcine/Pf 5,000 Unit/0.5 Ml Syringe SQ 5,000 unit Q12HR TANIA Administration Sodium Chloride 1,000 mls @ 100 mls/hr 06/14/23 14:00 06/15/23 04:49 Saline 0.9% IV 100 mls/hr .Q10H TANIA Administration Metoprolol Tartrate 50 mg 06/15/23 09:00 06/15/23 08:24 Metoprolol Tartrate 50 Mg Tab PO 50 mg BID TANIA Administration Nitroglycerin 0.4 mg 06/14/23 13:57 Nitroglycerin Sl Tabs 0.4 Mg Tab SUBLINGUAL Q5M PRN Chest Pain Ondansetron HCl 4 mg 06/14/23 13:59 Ondansetron 4 Mg/2 Ml Vial IVP Q6HR PRN Nausea And Vomiting Venlafaxine HCl 75 mg 06/14/23 17:30 06/14/23 17:44 Venlafaxine Hcl Er 75 Mg Cap PO 75 mg W/SUPPER TANIA Administration Intake and Output 06/14/23 06/15/23 06/15/23 22:59 06:59 14:59 Intake Total 780 540 118 Balance 780 540 118 Intake: Intake, IV Titration 540 Amount Sodium Chloride 0.9% 1, 540 000 ml @ 100 mls/hr IV . Q10H [facility] Rx#:[id number] Oral 780 118 Other: Voiding Method Toilet Toilet # Voids 1 1 06/15/23 06:02 06/15/23 06:02
[2023-06-15 11:13] LABS: LDL Cholesterol,Calculated 42.5 mg/dL (0.0-131.0)
[2023-06-15] MEDS ORDERED: SODIUM CHLORIDE 0.9% 1,000 ML IV ONE ×2 (12:39→15:14)
[2023-06-15] MEDS: ATORVASTATIN 80 MG TAB PO SCH (16:16)
[2023-06-15] MEDS: VENLAFAXINE HCL ER 75 MG CAP PO SCH (16:16)
[2023-06-15] MEDS: ASPIRIN 81 MG PO SCH (16:16)
[2023-06-15 16:20] VITALS: BP 123/78; PULSE 71
--- NOTE | 2023-06-20 00:50 | P.DS ---
Providers Date of admission: 06/14/23 13:57 Attending physician: Jona Da Silva MD Consults: 06/14/23 13:57 Consult Physician Urgent Consulting Provider: Wil Oliva Consult Reason/Comments: cp Do you want consulting provider notified?: Yes Primary care physician: Mickie Kulwinder Va Hospital Course: Diagnoses: Chest pain, felt to be pleuritic-like chest pain, could be viral . cardiac causes were ruled out, with elevated troponin 0.035. Acute gastroenteritis, infectious causes is suspected including but not limited to viral infectious agents leukocytosis, could be secondary to above. Improving significantly Dehydration and hypovolemia secondary to above Postural hypotension, resolved after several boluses of normal saline Paroxysmal SVT Hypovolemic hyponatremia. Improved Fall without syncope Pain at the sacrum, secondary to fall. Follow-up outpatient Borderline hypotension with hypokalemia secondary to above Obesity with BMI of 37.9 History of hypertension, antihypertensive Hyperlipidemia History of sleep apnea Hospital course: This is a pleasant 67 years old female with past medical history of hypertension, sleep apnea Patient presents because of chest pain, Of one-day duration on the left side nonradiating. It like an achy pain increased by cough and deep breathing rated about 5-6/10 in severity. Associated with little dyspnea. Patient mainly admitted through emergency room to be evaluated by bond writer for chest pain. Track Equipment Operator have quality assurance consultant since admission and evaluated the patient. Chest pain resolved. Patient had CTA which was negative for PE on admission. Heart size is within normal limits. Echocardiogram showed ejection fraction 55-60%. Track Equipment Operator has cleared the patient for discharge Patient was eager to go home today. Patient also on admission was dehydrated secondary to acute gastroenteritis symptoms, felt to be viral on the top differential diagnosis versus others. On admission she had nausea vomiting and diarrhea. Patient was treated s ymptomatically and improved. On the day of discharge patient told me that her vomiting was stopped. That she was feeling hungry and she ate well. Staff documented that she ate 100% of her meal on the breakfast and 75% on lunch. Patient told me that her bowel movement is 2-3 per day becoming soft but not watery. Since patient showed improvement in symptoms further assessment of diarrhea felt unnecessary. Patient stated that she will monitor her self and if she felt getting worse she'll come back to emergency room. Symptoms to watch are discussed with the patient including but not limited to abdominal pain, worsening diarrhea, blood in urine or vomitus, recurrent vomiting. Fever. Lightheadedness and dizziness, syncope or any other symptoms and she verbalized understanding and acceptance. Because patient does not want to be sitting in the hospital to be monitored further. Patient looks reliable. Patient also has close outpatient follow-up within one week with 2 physicians as below. On admission patient was complaining from sacral musculoskeletal pain. Without neurological deficit, patient was walking at baseline. No numbness or tingling. No loss of bladder or bowl dysfunction. I offered to do x-ray for the patient patient preferred to treat symptomatically now. She is instructed to follow up with PCP within one week and if still symptomatic to do further workup as an alternative and she agrees. Patient pain control upon discharge. Risks and benefits of opioid medications are explained for the patient extensively including but not limited to the risk of respiratory depression and/or and she verbalized understanding and acceptance. Short course of opioid is provided for the patient and recommended patient follow-up. Patient with assessment. Goal of pain was also discussed with patient.. Physical therapy evaluated the patient and provided her with cushion pillow which helped her a lot. Patient was eager to go home. Discharge instructions and prescription was provided for the patient, confirmed with staff patient picked her prescriptions upon discharge Problems and management plan were discussed with the patient and he verbalized understanding and acceptance Patient was found stable and can be discharged home in guarded prognosis however he needs follow-up as an outpatient. Patient was instructed to follow up with PCP Dr. Gomes within one week and patient agrees with the appointments made for her on 06/21 stated she will follow up Patient's was instructed to follow up with bond writer Dr. Oliva on 06/22 and she agrees state she will follow-up. Patient was instructed to follow up with her vascular surgeon Dr. Pollard in one week and she agrees Physical exam -Gen: patient is a AAOx3, no distress. Obese CVS: S1-S2, RRR, no murmur Lungs: B/L CTA, no wheezing Abdomen: soft, no distention, no tenderness, positive bowel sounds Extremity: no leg edema or induration gait: At baseline Time spent more than 35 minutes Plan - Discharge Summary Discharge Rx Participant: Yes New Discharge Prescriptions: New HYDROcodone/APAP 5-325MG [Acme 5-325] 1 each PO Q6HR PRN 3 Days #12 tab PRN Reason: Pain Famotidine [Pepcid] 20 mg PO DAILY #7 tab Acetaminophen/Codeine Liquid [Tylenol/Codeine Liquid Cup] 5 ml PO Q6HR PRN ml PRN Reason: Pain Metoprolol Tartrate [Lopressor] 50 mg PO BID #60 tab Continue Rosuvastatin Calcium [Crestor] 40 mg PO W/SUPPER Aspirin EC [Ecotrin Low Dose] 81 mg PO W/SUPPER ALPRAZolam [Xanax] 0.5 mg PO DAILY PRN PRN Reason: Anxiety Venlafaxine HCl [Effexor XR] 75 mg PO W/SUPPER Discontinued Metoprolol Tartrate 25 mg PO BID Discharge Medication List ALPRAZolam [Xanax] 0.5 mg PO DAILY PRN 01/20/23 [History] Rosuvastatin Calcium [Crestor] 40 mg PO W/SUPPER 01/20/23 [History] Aspirin EC [Ecotrin Low Dose] 81 mg PO W/SUPPER 06/14/23 [History] Venlafaxine HCl [Effexor XR] 75 mg PO W/SUPPER 06/14/23 [History] Acetaminophen/Codeine Liquid [Tylenol/Codeine Liquid Cup] 5 ml PO Q6HR PRN ml 06/15/23 [Rx] Famotidine [Pepcid] 20 mg PO DAILY #7 tab 06/15/23 [Rx] HYDROcodone/APAP 5-325MG [Acme 5-325] 1 each PO Q6HR PRN 3 Days #12 tab 06/15/23 [Rx] Metoprolol Tartrate [Lopressor] 50 mg PO BID #60 tab 06/15/23 [Rx] Follow up Appointment(s)/Referral(s): Mickie Miramontes MD [Primary Care Provider] - 06/21/23 11:30 am () Alejandra Pollard DO [STAFF PHYSICIAN] - 1 Week Wil Oliva MD [STAFF PHYSICIAN] - 06/22/23 3:15 pm Patient Instructions/Handouts: Chest Pain (DC) Activity/Diet/Wound Care/Special Instructions: Heart healthy diet activity is restricted till you see your doctor Discharge Disposition: HOME SELF-CARE
== END 2023-06-15 19:00 | disposition home or self-care (01) ==
LOC: EC 11:19 → 3SCARD 13:57
PROVIDERS: ADMIT Internal Medicine; ATTEND Internal Medicine
DX: R07.89 Other chest pain (principal); K52.9 Noninfective gastroenteritis and colitis, unspecified; I10 Essential (primary) hypertension; F32.A Depression, unspecified; I65.23 Occlusion and stenosis of bilateral carotid arteries; F12.90 Cannabis use, unspecified, uncomplicated; I08.1 Rheumatic disorders of both mitral and tricuspid valves; E87.1 Hypo-osmolality and hyponatremia; F41.9 Anxiety disorder, unspecified; E87.6 Hypokalemia; E66.9 Obesity, unspecified; E78.5 Hyperlipidemia, unspecified; Z79.899 Other long term (current) drug therapy; Z79.82 Long term (current) use of aspirin; Z88.8 Allergy status to other drugs, medicaments and biological substances; Z90.49 Acquired absence of other specified parts of digestive tract; Z68.37 Body mass index [BMI] 37.0-37.9, adult
CPT/HCPCS: 96361 ×2; 96372 ×2; 96374; 96375; 99285; 36415; 93005; 93270; 97162; 92610; 85379; 83880; 80061; 80053; 80048; 82150; 83690; 83735; 84484; 85025 ×2; 85610; 85730; 84145; 93971; 71275; G0378 ×2; C8929; J2060; J2405; Q9950; Q9967; J1644 ×2; 93306

== ENCOUNTER → 2023-10-04 | Outpatient (CLI) | payer MEDICARE | LOC: CPPFTMAIN 17:00 | PROVIDERS: ATTEND Family Medicine | DX: R06.09 Other forms of dyspnea (principal); F17.200 Nicotine dependence, unspecified, uncomplicated; Z88.8 Allergy status to other drugs, medicaments and biological substances; Z79.82 Long term (current) use of aspirin | CPT/HCPCS: 94060; 94726; 94729 ==